=== PATIENT | male | born 1995 | race Caucasian/White ===

== ENCOUNTER 2017-10-15 20:22 | Emergency (ER) | END 2017-10-15 22:22 | disposition home or self-care (01) ==

== ENCOUNTER 2017-12-05 17:12 | Emergency (ER) | END 2017-12-05 21:40 | disposition home or self-care (01) ==

== ENCOUNTER 2018-01-28 23:26 | Emergency (ER) | END 2018-01-29 05:58 | disposition home or self-care (01) ==

== ENCOUNTER 2018-06-06 20:02 | Emergency (ER) | END 2018-06-06 23:48 | disposition home or self-care (01) ==

== ENCOUNTER 2018-12-03 09:58 | Emergency (ER) | payer SELFPAY ==
[~2018-12-03] VITALS: Wt 104.5 kg
[~2018-12-03 09:58] MED LIST: ACET500C5 PO; CEPH-443 PO; CEPH500C PO; CYCL10TA7 PO; HYDR-4011 PO; IBUP-1561 PO; IBUP800T48 PO; MAG-19 PO; NAPR-985 PO; RANI150T35 PO; SLSL1C50 TOP; TRAM50TA2 PO
[2018-12-03] MEDS ORDERED: LORAZEPAM 2 MG INJ ONE (10:10)
[2018-12-03 10:16] VITALS: RESP 20
[2018-12-03] MEDS: HALOPERIDOL 5 MG INJ IM ONE ×2 (10:16→10:20)
[2018-12-03] MEDS ORDERED: LORAZEPAM 2 MG INJ IM ONE (10:30)
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
[2018-12-03 17:16] VITALS: BP 132/71; PULSE 78
== END 2018-12-03 18:29 | disposition home or self-care (01) ==
LOC: E/R 09:58
DX: F10.920 Alcohol use, unspecified with intoxication, uncomplicated (principal); R40.2142 Coma scale, eyes open, spontaneous, at arrival to emergency department; S09.90XA Unspecified injury of head, initial encounter; R51 Headache; Y04.0XXA Assault by unarmed brawl or fight, initial encounter; Y92.9 Unspecified place or not applicable
CPT/HCPCS: 70450; 96372; 99285; J1630; J2060